=== PATIENT | male | born 1995 | race Caucasian/White ===

== ENCOUNTER 2024-07-05 09:39 | Day surgery (SDC) | payer SELFPAY ==
[2024-07-05] VITALS (8 sets, daily range): BP systolic 98–135; BP diastolic 55–82; PULSE 67–98; RESP 16–18; TEMP 36.2–36.9; O2SAT 92–99; BMI 25.2
[2024-07-05] MEDS: 0.9% Normal Saline (1000mL) 1,000 ML 15 ML IV (10:02)
--- NOTE | 2024-07-05 10:12 | HP.PCM_ITS ---
History and Physical Date of Admission: 07/05/24 Intake Vital Signs 01/05/2413:08 Height 5 ft 10 in Weight: 175 lb BMI 25.1 BP 129/75 H Blood Pressure Location Rt brachial Position Sitting Respiration 18 Pulse 84 Pulse Source Monitor Temp 97.5 F L Temp Source Temporal Pulse Oximetry (%) 97 Oxygen Delivery Method room air Intake Visit Reasons: R INGUINAL HERNIA Chief Complaint: R inguinal hernia Is patient in pain?: No Allergies No Known Allergies Allergy (Unverified 01/06/24 13:10) Medications ?Medication ?Instructions ?Recorded ?Confirmed ?Type NK 01/06/24 01/06/24 History PFSH Surgical History (Updated 01/06/24 @ 13:08 by Anne Tenorio LPN) Hx of vasectomy Social History (Updated 01/06/24 @ 13:08 by Anne Tenorio LPN) Smoking Status: Current every day smoker tobacco type: cigarettes Years smoked: 6 Electronic Cigarette Use: without nicotine HPI HPI HPI: Patient is a 28-year-old male who has been experiencing right groin bulging for the last year to year and a half. He reports some mild pain but mostly is bul ging that he has to push back in and it is growing larger. He denies any bulging or pain on the opposite side. ROS General General: No weight change, appetite, fatigue, colon cancer, breast cancer or weakness Endo Endocrine: No thyroid disease, diabetes mellitus, thyroid cancer, Hair loss, heat intolerance or cold intolerance Skin Skin: No rash or changing moles Musc Musculoskeletal: Yes back problems; No arthritis, rheumatoid arthritis, gout or joint pain Cardio Cardiovascular: No murmur, pacemaker, heart disease, atrial fibrillation, high blood pressure, heart attack, heart stent, palpitations, shortness of breat with exertion or chest pain Psych Psychiatric: No depression, anxiety or hearing voices Resp Respiratory: No shortness of breath, No sleep apnea, No cough, No COPD, No asthma, No emphysema and No wheezing Gastro Gastrointestinal: No abdominal pain, No nausea or vomiting, No diarrhea, No constipation, No blood in stool, No acid reflux, No hemorrhoids, No ulcers, No gallbladder problem and No black,tarry stools Alex Hematologic: No blood thinners, No blood disorders, No bleeding, No anemia and No blood clots Neuro Neurologic: No numbness, No tingling and No weakness Exam Const General: cooperative Orientation: alert and oriented x3 HENMT Head: normal to inspection Neck Neck: normal visual inspection and full ROM Chest Chest palpation & inspection: normal inspection of the chest Resp Effort & Inspection: normal respiratory effort Auscultation: clear to auscultation bilaterally Cardio Rate: regular rate Rhythm: regular rhythm GI Inspection: non-distended Palpation: soft, hernia indirect inguinal on the right and nontender Skin General: no rashes or lesions noted Neuro General: patient alert and patient oriented x3 Extrem General: full ROM Psych Appearance: grossly normal Mental Status: mental status grossly normal Assessment and Plan Assessment and Plan (1) Right inguinal hernia: Status: Acute Plan: The patient has a reducible right inguinal hernia. I discussed robotic assisted laparoscopic right inguinal hernia repair with mesh with the patient. The patient is interested but he would like the procedure in the wintertime and will come back in the fall to schedule. I discussed the procedure in greater detail with him and I discussed the risks including but not limited to bleeding, infection, injury to organs in the inguinal region such as the bowel or bladder or blood supply to the testicle. Patient understands the risks and is willing to proceed. Walt Burleson MD Pager: [facility] [address] [place] [address], [address] [place] [address] Office: I have examined the patient and the H&P has been reviewed. There are no clinical changes since date of exam.
--- NOTE | 2024-07-05 10:17 | PRE.ANES_ITS ---
ASA Classification* ASA Classification ASA Classification: 2 Assessment & Plan Anesthesia* Anesthesia Assessment Anesthesia Assessment: Discussed sedation and/or anesthesia options, risks, benefits, and alternatives with patient/parents/legal guardian/POA. Questions invited. The patient/parents/legal guardian/POA seems to understand and agrees to proceed with anesthesia plan. Reviewed the physical assessment, medical history, allergy history and patient home medications list prior to surgery/procedure/anesthetic and documented any changes. Performed airway and anesthesia risk assessments. Anesthesia Type Anesthesia Type: General History Source History Obtained from:: Patient and Chart Anesthesia Focused Assessment* Temperature: 98.4 F Pulse Rate: 85 Blood Pressure: 129/82 Respiratory Rate: 16 Pulse Ox: 99 Oxygen Delivery Method: Room Air Airway Assessment Mouth opens: >3 cm Mallampati Score: II Teeth Condition: Dentures (Patient has full upper dentures. They are out.) and Missing (Patient is missing a couple teeth on the bottom. Rest of the teeth are tight.) Neck Range of motion (ROM): Full ROM Focused Labs Anesthesia Preop lab: CBC CHEMISTRY COAG Pre-Assessment Diagnosis/Proposed Procedure Planned Operative Procedure(s): (R) Lap Robotic Inguinal Hernia w/mesh Anesthesia History Anesthesia History - staff development nurse: Anesthesia History - staff development nurse Hx Hospitalization No 06/21/24 11:53 Any Problems With Anesthesia No 06/21/24 11:53 Cholinesterase deficiency No 06/21/24 11:53 You/Your Family Experience No 06/21/24 11:53 fever (hyperthermia) with Relationship Recent Exposure to Contagious No 07/05/24 10:04 Disease Does patient have nerve No 06/21/24 11:53 stimulator Patient instructed to have device shut off --Does patient have Pacemaker No 07/05/24 10:04 or ICD? When Was Last Pacemaker Check QUESTION #4 FULL TEXT: You/Your Family Experience fever (hyperthermia) with Anesthesia Last Oral Intake Last Oral intake: Last Oral Intake NPO since 06:00 07/05/24 10:04 Meds taken in AM with sips of No 07/05/24 10:04 water? Meds patient instructed to take am of surgery Any additional information?: Yes NPO since: 06:00 (Patient took a sip of water at 6 AM.) PONV PONV - staff development nurse: PONV - staff development nurse Female No 06/21/24 11:53 HX of Motion Sickness Yes 06/21/24 11:53 HX of N/V After Surgery No 06/21/24 11:53 Non-Smoker No 06/21/24 11:53 Duration of Surgery greater No 06/21/24 11:53 than 60 minutes Number of Risk Factors 1 06/21/24 11:53 PONV Score Low Risk 06/21/24 11:53 Height & Weight Height & Weight: Anesthesia: Height & Weight Height 5 ft 10 in 07/05/24 10:04 Weight: 80 kg 07/05/24 10:04 Body Mass Index (BMI) 25.2 07/05/24 10:04 Respiratory Assessment Respiratory Assessment - staff development nurse: Respiratory Tract Infection Hx - staff development nurse Hx Respiratory Tract Infection No 06/21/24 11:53 Any additional information?: Yes Hx Respiratory Tract Infection: Yes (Patient states that he has a slight cough. No fevers. Lungs are clear.) STOP Sleep Apnea STOP Sleep Apnea - staff development nurse: STOP Sleep Apnea - staff development nurse Hx Hypertension No 06/21/24 11:53 Hx Sleep Apnea No 06/21/24 11:53 CPAP BIPAP Do you snore loudly (louder No 06/21/24 11:53 than talking or can be heard Do you often feel tired/ No 06/21/24 11:53 fatigued/ sleepy during daytime? Has anyone observed you stop No 06/21/24 11:53 breathing during sleep? STOP Results Negative 06/21/24 11:53 QUESTION #5 FULL TEXT : Do you snore loudly (louder than talking or can be heard through closed doors)? Tobacco Use History Tobacco Use History - staff development nurse: Tobacco Use History - staff development nurse Tobacco Use Smoking Status Current every day smoker 06/21/24 11:53 Hx Tobacco Use Yes 06/21/24 11:53 Years Smoking Packs Smoked per Day Smoking Cessation Date was within the last 15 years Hx Smoking Cessation Date Hx Smoking Cessation Counseling Any additional information?: Yes Smoking Status: Current every day smoker (Patient smoked today.) Hematologic Medial History Hematologic Hx - staff development nurse: Hematologic Medical Hx - clinical documentation clerk Hx of Blood Transfusion No 06/21/24 11:53 Hx of Transfusion in last 3 No 06/21/24 11:53 Months Date of Last Transfusion (if within last 3 months) Ever experience any problems No 06/21/24 11:53 with transfusion(s)? Specify any problems Hx of Preganancy in last 3 N/A 06/21/24 11:53 Months Nurse Filling Out Transfusion PINKY 06/21/24 11:53 & Questions: Date: 06/21/24 06/21/24 11:53 Time: 11:59 06/21/24 11:53 Patient unable to answer at this time (ie. confused, unrespo /Reproduction History /Reproductive History - staff development nurse: /Reproductive Hx- staff development nurse Hx Now Gestational Age (in weeks): EDC: Hx Hx Para Hx Section SAB Active Medications Active Medications: Current Medications Generic Name Dose Route Start Last Admin Trade Name Freq PRN Reason Stop Dose Admin Cefazolin Sodium 2 gm/ N/A 20 mls @ 400 mls/hr 07/05/24 11:30 IV 07/05/24 11:32 PREOP ONE Sodium Chloride 1,000 mls @ 15 mls/hr 07/05/24 09:55 07/05/24 10:02 IV 07/10/24 23:14 15 mls/hr .Q48H SIMI Administration Protocol PFS Medical History Migraine headache Smoker Home Medications ?Medication ?Instructions ?Recorded ?Last Taken ?Type NK 01/06/24 Unknown History Allergy/AdvReac Type Severity Reaction Status Date / Time No Known Allergies Allergy Verified 07/05/24 10:01 Surgical History Hx of vasectomy Social History Smoking Status: Current every day smoker tobacco type: cigarettes Electronic Cigarette Use: without nicotine Review of Systems (Anesthesia) ROS Narrative System reviewed and no additional complaints, except as documented. Physical Exam Resp clear to auscultation bilaterally
[2024-07-05] MEDS: Cefazolin 2 GM in Syringe IV (10:55)
[2024-07-05] MEDS: Bupivacaine Mpf 0.5% 30 ML VIAL (11:26)
--- NOTE | 2024-07-05 11:54 | PCM.OPRPT ---
Operative Report (Standard) Operative Information Date of Procedure: 07/05/24 Pre-Operative Diagnosis: Right inguinal hernia Post-Operative Diagnosis: Bilateral inguinal hernias Surgery/Procedure Performed: Robotic assisted laparoscopic bilateral inguinal hernia repair with mesh set up technician: Yes Material Attendant: Martell Flynn Tasks completed by surgical first assistant: Opening and Closing Type of Anesthesia: General/Regional RN Documented Start/Stop Times: Operation Date: 07/05/24 11:30 Case Time Into Pre-Op 07/05/24 09:50 Out of Pre-Op 07/05/24 10:45 Anesthesia Start 07/05/24 10:50 Into Room 07/05/24 10:50 Procedure Start 07/05/24 11:05 Procedure Start Time: 11:05 Procedure Stop Time: 12:05 Select all DRAINS/GRAFTS/IMPLANTS that apply: Implanted device Implanted device details: ProGrip mesh bilaterally Estimated Blood Loss: 5 Specimen collected: No Description of surgery: Patient was brought back the operating room and general anesthesia was induced. The abdomen was prepped draped in usual sterile fashion. Midline incision was made superior to the umbilicus and deepened to the fascia which was elevated and a Veress needle was placed into the abdomen and a drop test was performed. Drop test was normal. The abdomen is insufflated 15 mmHg and then the needle was removed. Port was placed into the abdomen and a camera was placed in the abdomen to inspect for injuries and there were none. Patient was placed in Trendelenburg position and the pelvis was inspected. The patient had bilateral inguinal hernias. Next under direct visualization an 8 mm port was placed in the right lateral sidewall and left lateral sidewall. The robot was then docked. The peritoneum in the right lower quadrant was incised using electrocautery scissors and then dissection was carried inferiorly until the whole hernia sac was dissected free. Once it was reduced the dissection was carried posteriorly. Next a piece of ProGrip mesh was placed in the right groin and unfolded covering the defect well. Next the peritoneum was reapproximated using a running 3 OV lock suture to completely cover the mesh. There was a small rent in the peritoneum and this was closed with another V-Loc. The mesh was completely covered by peritoneum at the end of the case. Attention was then paid to the left side. The patient was consented before surgery to fix the contralateral side if there was a hernia present. In the same fashion an incision was made in the peritoneum and then dissection was carried down the hernia sac until it was fully reduced. Next ProGrip mesh was placed into the left groin and unfolded over the hernia defect and then the peritoneum was reapproximated using a running 3 OV lock suture. The mesh on both sides was completely covered with peritoneum by the end of the case. There was good hemostasis. The robot was undocked and the ports were removed and the abdomen was allowed to desufflate. The incisions were injected with local anesthetic and closed with interrupted 4-0 Monocryl sutures. Steri-Strips and bandages were applied. The scrotum was checked at the end of the case and contained both testicles. The patient was brought to PACU in stable condition and tolerated the procedure well. Surgical Findings: Bilateral inguinal hernias Complications Complications: No Admit VTE Documentation VTE Mechan Device Prophylaxis: SCD's
--- NOTE | 2024-07-05 12:02 | EX.PCM.DISCH ---
Discharge Instructions Procedure Hernia Diet Discharge Diet: Light diet - advance as tolerated Activity Discharge Activity: May Not Drive (for 2-3 days or while taking narcotic pain meds.) and May Shower (with the bandage in place 1-2 days after surgery.) Lifting Restrictions: 20 pounds for 4 weeks. Additional Activity Instructions:: Climbing stairs is fine, walking is encouraged. Sitting in bed may be uncomfortable. Sitting up using your lateral muscles (sitting up sideways) is usually more comfortable. Do not drive, work heavy equipment of sign legal documents for 24 hours. If your hernia repair was an inguinal repair, you may have scrotal swelling, an ice pack and/or athletic support can provide more comfort. Pain medications may cause nausea, you should typically eat light foods as you take your pain medications. Pain medications may also cause constipation. If you have difficulty with this, discuss with your doctor. Alternate ibuprofen and Tylenol for pain control, oxycodone for breakthrough pain. Oxycodone may constipate you. Use MiraLAX if needed. Dressing / Incision Call your doctor if your incision/area has: Continuous Slow Oozing, Sudden Increased Bleeding, Increased Pain/ Swelling, Increased Redness and Foul Smelling Discharge Call your doctor if you observe: Fever of 101 or Higher Suture Line Care: Avoid Pulling/Pushing and Avoid Pinching/Bending Remove Dressing in: 2 days (Remove clear bandages in 2 days, remove Steri-Strips in 7 to 10 days.) Cleanse incision/area with: Soap & Water Follow Up Care Please Follow Up With: Walt Burleson MD When: Please call to schedule 2 week follow up appointment. [phone] Test Results: Test results from this visit will be discussed in further detail at your follow-up appointment, if applicable. Discharge Plan Admission Attending Provider: Walt Burleson Primary Care Provider: Fady Scott Instructions Print Language: Anguillan Discharge Orders/Prescriptions Prescriptions: New oxycodone 5 mg Tablet 5 - 10 mg PO Q4H PRN PRN (Reason: Pain Score 4-10) 5 Days Qty: 14 0RF Referrals / Follow Up: Fady Scott DO [Primary Care Provider] - Disposition Disposition (needs filled in before D/C Order can be placed): Home, Self Care
--- NOTE | 2024-07-05 12:14 | PCM.POST.ANE ---
Anesthesia: Postop Eval I Current Vital Signs Temperature: 97.9 F Pulse Rate: 68 Blood Pressure: 135/79 Respiratory Rate: 16 Pulse Ox: 96 Oxygen Delivery Method: Room Air Assessment Airway patent: Yes Spontaneous unlabored respirations: Yes Mental status: Awake and Calm nausea: No Vomiting: No Anesthesia Complication: No Fluid Hydration Crystalloid volume administer (ml): 500 Total IV fluid infused: 500 Progress Note Anesthesia document: Postop Eval 1 completed: Yes
--- NOTE | 2024-07-05 13:52 | POSTOPAN2_ITS ---
Anesthesia Postop Eval I Sum Postop Eval Completion status Anesthesia document: Postop Eval 1 completed: Yes Anesthesia Postop Eval I Summary Anesthesia Postop Eval I Summary: Anesthesia Postop Eval I: Assessment Summary Airway patent Yes 07/05/24 12:15 RN [email or web address] Spontaneous unlabored Yes 07/05/24 12:15 RN RADIOLOGY.HARMANOBRashard respirations Mental status Awake,Calm 07/05/24 12:15 RN [email or web address].[email or web address] nausea No 07/05/24 12:15 RN RADIOLOGY.SKOBY Vomiting No 07/05/24 12:15 RN [email or web address].SKOBY Anesthesia Postop Eval I: Fluid Summary Crystalloid volume administer 500 07/05/24 12:15 RN [email or web address].[email or web address] (ml) Colloids volume administered ( ml) Blood Product volume administered (ml) Total IV fluid infused 500 07/05/24 12:15 RN RADIOLOGY.HARMANOBRashard Anesthesia Postop Eval I: Summary Notes Anesthesia Complication No 07/05/24 12:15 RN RADIOLOGY.HARMANOBRashard Anesthesia Complication Comment: Post-operative progress note Anesthesia: Postop Eval II Evaluation Mental status: Awake and Calm Pain Level: 1 nausea: No Vomiting: No Complications Anesthesia Complication: No
--- NOTE | 2024-07-05 13:52 | PCM.POSTANE2 ---
Anesthesia Postop Eval I Sum Postop Eval Completion status Anesthesia document: Postop Eval 1 completed: Yes Anesthesia Postop Eval I Summary Anesthesia Postop Eval I Summary: Anesthesia Postop Eval I: Assessment Summary Airway patent Yes 07/05/24 12:15 GARBAGE [email or web address] Spontaneous unlabored Yes 07/05/24 12:15 GARBAGE MAN.HARMANOBRashard respirations Mental status Awake,Calm 07/05/24 12:15 GARBAGE MAN.SKOBY nausea No 07/05/24 12:15 GARBAGE MAN.SKOBY Vomiting No 07/05/24 12:15 GARBAGE MAN.SKOBY Anesthesia Postop Eval I: Fluid Summary Crystalloid volume administer 500 07/05/24 12:15 GARBAGE MAN.[email or web address] (ml) Colloids volume administered ( ml) Blood Product volume administered (ml) Total IV fluid infused 500 07/05/24 12:15 GARBAGE MAN.HARMANOBRashard Anesthesia Postop Eval I: Summary Notes Anesthesia Complication No 07/05/24 12:15 GARBAGE MAN.HARMANOBRashard Anesthesia Complication Comment: Post-operative progress note Anesthesia: Postop Eval II Evaluation Mental status: Awake and Calm Pain Level: 1 nausea: No Vomiting: No Complications Anesthesia Complication: No
== END 2024-07-05 14:19 | disposition home or self-care (01) ==
LOC: SDC 09:48 → AC 09:49
PROVIDERS: PCP Family Medicine; Referring Provider Surgery; Visit Provider Surgery
PROC: (CPT 49650; principal; 2024-07-05 11:15)
DX: K40.20 Bilateral inguinal hernia, without obstruction or gangrene, not specified as recurrent (principal); F17.210 Nicotine dependence, cigarettes, uncomplicated
CPT/HCPCS: 49650; S2900; 00840; J2405